=== PATIENT | male | born 1940 | race Caucasian/White ===

== ENCOUNTER 2016-11-09 16:19 | Inpatient (IN) | payer OTHER, BC ==
[~2016-11-09] VITALS: Ht 177.8 cm; Wt 102.5 kg
[2016-11-09 16:58] LABS: EOSINOPHIL (%) 3.3 % (0-5); EOSINOPHIL COUNT 0.3 K/uL (0-0.3); HEMATOCRIT 42.8 % (38.0-50.0); IMMATURE GRANULOCYTE (%) 0.4 % (0.0-0.7); IMMATURE GRANULOCYTE COUNT 0.4 K/uL; MCHC 35.7 G/DL (30.0-36.0); MCV 83.9 FL (86-99); MONOCYTE (%) 7.7 % (3-12); MONOCYTE COUNT 0.7 K/uL (0-0.8); NEUTROPHIL (%) 67.9 % (45-76); NEUTROPHIL COUNT 6.5 K/uL (1.8-6.4); PLATELET COUNT 285 K/uL (156-360); RBC DIS.WIDTH-CV 12.6 % (11.8-14.6); RBC DIS.WIDTH-SD 37.7 % (39-53); WHITE BLOOD COUNT 9.6 K/uL (4.1-10.2)
[2016-11-09 17:09] LABS: CHLORIDE 107 mEq/L (99-109); POTASSIUM 3.5 mEq/L (3.7-5.4); SODIUM 140 mEq/L (136-147)
[2016-11-09 17:11] LABS: GLUCOSE 152 mg/dL (70-99)
[2016-11-09 17:13] LABS: ANION GAP 10 MEQ/L (2-14); TOTAL BILIRUBIN 0.3 mg/dL (0.0-1.0)
[2016-11-09 17:15] LABS: ALKALINE PHOSPHATASE 92 IU/L (3-129); GFR ESTIMATE (CALCULATED) 52 mL/min/
[2016-11-09 17:16] LABS: UREA NITROGEN (BUN) 20 mg/dL (9-23)
[2016-11-09 17:21] LABS: TROP-I INTERPRETATION NEGATIVE; TROPONIN-I < 0.01 ng/mL (0.0-0.30)
[2016-11-09 17:25] LABS: HDL CHOLESTEROL 34 MG/DL (Desirable>=40); LDL CHOLESTEROL 77 mg/dL (Desirable<100); NON-HDL CHOLESTEROL 148 mg/dL (Desirable<160); SAMPLE HEMOLYSIS CHECK 0; SAMPLE ICTERIC CHECK 0; SAMPLE LIPEMIA CHECK 0; TOTAL CHOLESTEROL 182 mg/dL (Desirable<200); TRIGLYCERIDES 357 MG/DL (Normal: <150)
[2016-11-09] MEDS ORDERED: PRAVASTATIN SOD10 MG PO (19:41)
[2016-11-09] MEDS ORDERED: LOSARTAN POTAS100 MG PO (19:41)
[2016-11-09] MEDS ORDERED: LO-DOSE ASPIRIN81 M1 PO (19:42)
[2016-11-09] MEDS ORDERED: QUININE SULFAT324 MG PO (19:44)
[2016-11-09] MEDS ORDERED: KENALOG,ARISTOC15 G2 TP (19:46)
[2016-11-09] MEDS ORDERED: BLOOD PRESSURE MED PO (19:47)
[2016-11-09 23:05] VITALS: BP 184/81
[2016-11-10 03:44] VITALS: BP 178/84
[2016-11-10 07:52] VITALS: BP 157/85
[2016-11-10 09:57] LABS: MCH 30.4 PG (29.0-34.0); MCHC 35.2 G/DL (30.0-36.0); MCV 86.2 FL (86-99); MEAN PLAT.VOLUME 10.5 uM^3 (9.0-12.4); PLATELET COUNT 242 K/uL (156-360); RBC DIS.WIDTH-CV 12.7 % (11.8-14.6); RED BLOOD COUNT 4.87 M/uL (4.00-5.50)
[2016-11-10 10:19] LABS: ANION GAP 8 MEQ/L (2-14); CHLORIDE 104 MEQ/L (99-109); GFR ESTIMATE (CALCULATED) > 59 mL/min/; GLUCOSE 135 mg/dL (70-99); POTASSIUM 3.9 MEQ/L (3.7-5.4); SAMPLE HEMOLYSIS CHECK 0; SAMPLE ICTERIC CHECK 0; SAMPLE LIPEMIA CHECK 0; SODIUM 139 MEQ/L (136-147); UREA NITROGEN (BUN) 17 mg/dL (9-23)
[2016-11-10 11:13] VITALS: BP 158/80
[2016-11-10 19:31] VITALS: BP 156/86
[2016-11-11] VITALS: BP 167/81
[2016-11-11 04:00] VITALS: BP 153/78
[2016-11-11 07:52] VITALS: BP 166/91
[2016-11-11 08:13] LABS: Estimated Average Glucose 114 mg/dL (70-123); HEMOGLOBIN A1c (GLYCOHEMOGLOB) 5.6 % HGB (Below 5.7)
[2016-11-11 13:58] VITALS: BP 154/92
[2016-11-11 16:49] VITALS: BP 146/72
[2016-11-11 20:10] VITALS: BP 157/86
[2016-11-12] VITALS: BP 135/78
[2016-11-12 04:00] VITALS: BP 134/74
[2016-11-12 06:21] LABS: HEMATOCRIT 46.2 % (38.0-50.0); MCH 28.9 PG (29.0-34.0); MCHC 33.3 G/DL (30.0-36.0); MCV 86.7 FL (86-99); MEAN PLAT.VOLUME 10.5 uM^3 (9.0-12.4); PLATELET COUNT 289 K/uL (156-360); RBC DIS.WIDTH-CV 12.7 % (11.8-14.6); RBC DIS.WIDTH-SD 40.3 % (39-53); RED BLOOD COUNT 5.33 M/uL (4.00-5.50); WHITE BLOOD COUNT 9.1 K/uL (4.1-10.2)
[2016-11-12 06:46] LABS: ANION GAP 9 MEQ/L (2-14); CHLORIDE 102 MEQ/L (99-109); CREATINE KINASE 77 IU/L (1-294); GFR ESTIMATE (CALCULATED) 57 mL/min/; GLUCOSE 115 mg/dL (70-99); POTASSIUM 4.3 MEQ/L (3.7-5.4); SAMPLE HEMOLYSIS CHECK 0; SAMPLE ICTERIC CHECK 0; SAMPLE LIPEMIA CHECK 0; SODIUM 138 MEQ/L (136-147); TOTAL CK 77 IU/L (1-294); UREA NITROGEN (BUN) 18 mg/dL (9-23)
[2016-11-12 07:16] LABS: CK-MB 1.1 ng/mL (0.0-4.9)
[2016-11-12 08:06] VITALS: BP 141/83
[2016-11-12 11:55] VITALS: BP 162/81
[2016-11-12] MEDS ORDERED: GABAPENTIN100 MG PO (12:44)
[2016-11-12] MEDS ORDERED: CYCLOBENZAPRINE5 MG PO (12:44)
[2016-11-12] MEDS ORDERED: AMLODIPINE BESYL5 MG PO (12:44)
[2016-11-12] MEDS ORDERED: ATORVASTATIN CA40 MG PO (12:44)
[2016-11-12] MEDS ORDERED: LO-DOSE ASPIRIN81 M2 PO (12:45)
[2016-11-12] MEDS ORDERED: PLAVIX75 MG PO (12:45)
== END 2016-11-12 13:29 | disposition home or self-care (01) | DRG 552 ==
LOC: EME 16:19 → 5SOUTH 21:10 → EDOF 21:10 → 5SOUTH 22:20
PROVIDERS: Emergency Medicine; Physician Assistant
DX: M51.16 Intervertebral disc disorders with radiculopathy, lumbar region (principal); M48.06 Spinal stenosis, lumbar region; M62.838 Other muscle spasm; I10 Essential (primary) hypertension; E78.5 Hyperlipidemia, unspecified; E66.9 Obesity, unspecified; Z79.82 Long term (current) use of aspirin; Z91.14 Patient's other noncompliance with medication regimen; Z86.73 Personal history of transient ischemic attack (TIA), and cerebral infarction without residual deficits; Z85.820 Personal history of malignant melanoma of skin; Z68.32 Body mass index [BMI] 32.0-32.9, adult
CPT/HCPCS: 70450; 70551; 71020; 72132; 72148; 72193; 80048; 80053; 80061; 81003; 82550; 82553; 83036; 84484; 85025; 85027; 93005; 93880; 94799; 95819; 99281; 99284; J1644; J2060